=== PATIENT | male | born 1970 | race Caucasian/White ===

== ENCOUNTER 2019-08-14 05:16 | Emergency (ER) | payer OTHER ==
[~2019-08-14] VITALS: Ht 170.2 cm; Wt 79.5 kg
[2019-08-14] MEDS ORDERED: ketorolac trometh inj. 60 MG/2 ML VIAL IM ONE (05:40)
--- NOTE | 2019-08-14 06:05 | NUR ---
PATIENT REPORTED BEING DIZZY WHILE CHECKING OUT AT REGISTRATION. VITALS HR 38 BP 69/40 PATIENT REPORTS FEELING DIZZY AND NAUSEAS. PATIENT TAKEN BACK TO ROOM 6 IN WHEELCHAIR FOR FURTHER ASSESSMENT
[2019-08-14 06:06] VITALS: BP 112/67
== END 2019-08-14 05:55 | disposition home or self-care (01) ==
LOC: ER 05:17
DX: M25.512 Pain in left shoulder (principal); M62.830 Muscle spasm of back; M54.6 Pain in thoracic spine
CPT/HCPCS: 93005; 96372; 99283; J1885